=== PATIENT | female | born 1975 | race Caucasian/White ===

== ENCOUNTER 2025-02-12 17:51 | Day surgery (SDC) | payer OTHER, SELFPAY ==
[2025-02-12] VITALS (18 sets, daily range): BP systolic 103–126; BP diastolic 56–82; PULSE 63–636; RESP 12–18; TEMP 36.2–36.3; O2SAT 85–100
[2025-02-12 18:26] LABS: Basophils Absolute Auto 0.02 K/uL (0.00-0.30); Basophils Percent Auto 0.2 % (0.0-3.0); Eosinophils Absolute Auto 0.14 K/uL (0.00-0.50); Eosinophils Percent Auto 1.7 % (0.0-7.0); Hematocrit 43.8 % (33.0-51.0); Hemoglobin* 14.2 gm/dL (12.0-16.0); Immature Granulocytes Abs Auto 0.02 K/uL (0.00-0.30); Immature Granulocytes Pct Auto 0.2 %; Lymphocytes Absolute Auto 2.77 K/uL (0.90-2.90); Lymphocytes Percent Auto 33.8 % (20-44); Mean Corpuscular HGB Conc 32 gm/dL (32-36); Mean Corpuscular Hemoglobin 28 pg (26-34); Mean Corpuscular Volume 86 fL (80-100); Monocytes Percent Auto 4.4 % (0.0-11.0); Neutrophils Absolute Auto 4.89 K/uL (1.7-7.0); Neutrophils Percent Auto 59.7 % (42.0-72.0); Platelet Count* 236 K/uL (140-440); RDW Coefficient of Variation % 12.8 % (11.5-15.5)
[2025-02-12 18:27] LABS: Chloride* 103 mmol/L (96-114); Potassium* 3.9 mmol/L (3.6-5.1); Slide Review Reflex No; Sodium* 139 mmol/L (135-149)
[2025-02-12 18:29] LABS: Blood Urea Nitrogen* 17 mg/dL (7-30); Creatinine* 0.9 mg/dL (0.5-1.5); Est. Creatinine Clearance* 58.49; Estimated Glomerular Filt Rate 77 ml/min
[2025-02-12 18:30] LABS: Anion Gap 11 mEq/L (7-15); Calcium* 9.8 mg/dL (8.4-10.6); Carbon Dioxide* 25 mmol/L (20-32); Glucose* 99 mg/dL (60-115)
--- NOTE | 2025-02-12 18:41 | P.GSHP_ITS ---
History of Present Illness History of Present Illness Date Seen: 02/12/25 Chief complaint: Surgery Narrative: Izabella Rosario is a 49 year old female who presented to clinic today with 4 days of abdominal pain. She states that Wednesday or 4 days ago, she developed pain in her entire abdomen after eating supper. She tried a heating pad and was able to go back to sleep. The next day she felt better but the pain had moved to her right side. Over the weekend the pain persisted but was not particularly severe. She denies any nausea or vomiting. No change in bowel habits. Nothing seems to make the pain better or worse. She has not eaten since yesterday. When she told her primary care provider at her routine physical today about her discomfort, workup for appendicitis was performed. CT scan showed a dilated appendix with periappendiceal inflammation. Labs were sent out and so from clinic are pending. [facility] Medical History (Updated 02/12/25 @ 18:50 by Gypsy Salguero MD) Obesity ?E66.9 - Obesity, unspecified (ICD-10) Hyperlipidemia ?E78.5 - Hyperlipidemia, unspecified (ICD-10) Surgical History (Updated 02/12/25 @ 18:50 by Gypsy Salguero MD) S/P shoulder surgery ?Z98.890 - Other specified postprocedural states (ICD-10) Social History Narrative: She does not smoke. She drinks alcohol on weekends. 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 No scars. Patient is tender in the right lower quadrant. No guarding. No rebound. Musculoskeletal: Extremities: Upper: Both upper extremities have normal joint range of motion and intact strength. Lower: Both lower extremities have normal joint range of motion and intact strength. Skin: Normal skin color, texture, and turgor. Neurologic: No focal deficits Psychiatric: Alert, oriented, cooperative, normal affect. Results Results Labs: CBC and BMP done today at [facility] were within normal limits. Abdomen CT scan report/results: report reviewed and image reviewed Additional studies: [facility] abdomen [facility]: IMPRESSION: 1. Focal dilation of the appendix measuring up to 9 mm with subtle enhancement and mild periappendiceal fat stranding. This may be related to early or mild acute appendicitis. 2. Fibroid uterus. Please note that all CT scans at this facility use dose modulation, iterative reconstruction, and/or weight-based dosing when appropriate to reduce radiation dose to as low as reasonably achievable. Dictated by Rebekah Ware MD @ 02/12/2025 3:39:38 PM Progress Note:A&P Assessment and plan (1) Obesity: Status: Acute (2) Appendicitis: Status: Acute Plan The patient is a 49-year-old female with acute appendicitis. We discussed that appendectomy is the preferred treatment for this. This can most often be done laparoscopically. We discussed risks and benefits of the procedure including but not limited to bleeding, need for conversion to open, risk of injury to other structures, need for possible bowel resection, and abscess formation. The patient understands that the risk of abscess is higher if the appendix is perforated. For that reason, we generally keep patient is in the hospital on IV antibiotics until vital signs and white blood cell count had normalized. We also discussed recovery including 2 weeks of lifting restrictions. She is agreeable to proceed will plan on surgery emergently this evening.
--- NOTE | 2025-02-12 18:52 | PM.GSPRC ---
Operative Note Date of procedure: 02/12/25 Pre-op diagnosis: Acute appendicitis Post-op diagnosis: Same Type of Procedure: Laparoscopic appendectomy Indications: The patient is a 49-year-old female who presented to her primary care clinic with 4 days of abdominal pain. Workup revealed acute appendicitis. She was referred to [facility] for management. After discussion of risks and benefits of surgery, she agreed to proceed. Procedure Description: After discussing the risks and benefits of the procedure, the patient signed informed consent.? The operative site was marked and the patient was brought to the operating room and placed on the operating table in supine position.? Care was taken to pad the patient's pressure points.?? The patient was then intubated by anesthesia.?? The operative site was then prepped and draped in the usual sterile fashion.? A time-out was then performed. Entrance to the abdomen was obtained via a 5 mm optical trocar in the left upper quadrant. The abdomen was insufflated and briefly surveyed for any signs of injury. There were none. A 12 mm port was placed inferior to the umbilicus as well as a 5 mm port in the left lower quadrant. Both were done under direct vision. The patient was then placed in Trendelenburg position with the right side up. The small bowel was gently moved out of the way and the appendix was in view. The proximal portion of the appendix was inflamed. The tip of the appendix was adherent to the pericecal fat. I began at the base of the appendix. A mesenteric window was then created and an Endo-CHELSEY purple load stapler was used to transect the appendix at its base. A small amount of dissection using a combination of hook cautery and blunt dissection was necessary to free the appendiceal tip from the pericecal fat. Once this was free, a vascular load stapler was then used to divide the mesoappendix. The staple lines were inspected for bleeding. There was none. The appendix was then removed from the abdomen using an Endo-Catch bag. The specimen was sent to pathology. The 12 mm port site fascia was closed with 0 Vicryl using a Rip-Evy device. The ports were then removed and the abdomen desufflated. The skin was then closed with absorbable subcuticular suture. Sterile dressings were then applied. Instrument sponge and needle counts were correct at the end of the case. The patient was then woken and transported to the PACU in stable condition. ? The patient tolerated the procedure well. Findings: Acute appendicitis without perforation. Anesthesia: GETA Surgeon: Gypsy Salguero MD Estimated blood loss (mL): 7 Specimen: Appendix Condition: stable Disposition: PACU
[2025-02-12 18:57] LABS: HCG Qualitative Serum* Negative (Negative)
[2025-02-12] MEDS: LACTATED RINGERS 1000 ML 1,000 ML 125 ML IV (19:05)
[2025-02-12] MEDS: PIPERACILLIN/TAZOBACTAM 3.375 GM INJ IVPB (19:23)
--- NOTE | 2025-02-12 19:23 | PC.NURSE ---
Pt went down for sx @ 6448. Surgical packet complete. Checklist complete.
[2025-02-12] MEDS: BUPIVACAINE 0.25% 30 ML 20 ML INJECTION (19:27)
[2025-02-12] MEDS: fentaNYL 100 MCG/2 ML inj 50 MCG IVP ×4 (20:17→20:45)
--- NOTE | 2025-02-12 20:29 | P.ANES_ITS ---
Anesthesia Charges Start Date/Time Anesthesia Start Date: 02/12/25 Anesthesia Start Time: 19:05 Stop Date/Time Anesthesia Stop Date: 02/12/25 Anesthesia Stop Time: 20:20 Summary Emergency: SYRUP MIXER Coding CPT Codes CPT Codes: ANESTH SURG LOWER ABDOMEN - 64184 ([id number]) P3 - PATIENT W/SEVERE SYS DISEASE, QZ - SYRUP MIXER SVC W/O SKI PATROLLER BY Additional Codes: Summary - Emergency: SYRUP MIXER ([id number])
--- NOTE | 2025-02-12 20:29 | W.ANESCHARGE ---
Anesthesia Charges Start Date/Time Anesthesia Start Date: 02/12/25 Anesthesia Start Time: 19:05 Stop Date/Time Anesthesia Stop Date: 02/12/25 Anesthesia Stop Time: 20:20 Summary Emergency: [facility]ANCH OR DEPARTMENT CHIEF LIBRARIAN Coding CPT Codes CPT Codes: ANESTH SURG LOWER ABDOMEN - 27229 ([id number]) P3 - PATIENT W/SEVERE SYS DISEASE, QZ - BRANCH OR DEPARTMENT CHIEF LIBRARIAN SVC W/O CONCRETE BLOCK LAYER BY Additional Codes: Summary - Emergency: [facility] [employer] DEPARTMENT CHIEF LIBRARIAN ([id number])
[2025-02-12] MEDS: ACETAMINOPHEN INJ 1,000 MG/100 ML VIAL 400 MG IVPB (20:53)
[2025-02-12] MEDS: LACTATED RINGERS 1000 ML 1,000 ML 100 ML IV (20:56)
[2025-02-12] MEDS: HYDROmorphone 0.5 mg/0.5 ml inj IVP (21:40)
[2025-02-12] MEDS: HYDROCODONE-ACETAMIN 5-325 MG 1 TAB PO (22:22)
[2025-02-12] MEDS: ONDANSETRON 2 MG/ML inj 4 MG IVP (23:14)
[2025-02-13] VITALS: BP 127/71; PULSE 66; RESP 16; O2SAT 94
[2025-02-13 01:00] VITALS: BP 111/71; PULSE 65; RESP 16; O2SAT 94
[2025-02-13 02:00] VITALS: BP 107/68; PULSE 66; RESP 16; O2SAT 94
[2025-02-13] MEDS: HYDROCODONE-ACETAMIN 5-325 MG 1 TAB PO (06:26)
[2025-02-13 08:06] VITALS: BP 123/73; PULSE 58; RESP 16; TEMP 36.4; O2SAT 93
--- NOTE | 2025-02-13 08:09 | PC.NURSE ---
Discharge - Pt alert, oriented, cooperative and reportedly fatigued. Up with standby assistance, tolerating RA and regular diet/fluids. Pt rating pain as 2/10 that increases with movement. Given medication during prior shift per MAR for comfort, ice pack on site. Lap sites x 3 CDI. IV removed with catheter intact. Education provided to pt and spouse with verbalized understanding. Pt d/c to home via wheelchair with spouse at approximately 0800.
== END 2025-02-13 07:59 | disposition home or self-care (01) ==
LOC: OR 17:51 → MEDSURG 17:52
PROVIDERS: PCP Physician Assistant; Visit Provider Surgery
PROC: 0DTJ4ZZ Resection of Appendix, Percutaneous Endoscopic Approach (ICD-10-PCS; CPT 44970; principal; 2025-02-12 18:30)
DX: K35.80 Unspecified acute appendicitis (principal); E66.9 Obesity, unspecified; E78.5 Hyperlipidemia, unspecified; Z68.42 Body mass index [BMI] 45.0-49.9, adult
CPT/HCPCS: 44970; 00840; 36415; 80048; 84703; 85025; 88304; 99140; A9270; J0131; J0330; J0665; J1100; J1171; J1885; J2405; J2543; J2704; J3010; J3475; J3490; J7120